=== PATIENT | male | born 1935 | race Caucasian/White ===

== ENCOUNTER 2021-11-28 11:41 | Inpatient (IN) ==
[2021-11-28 13:14] LABS: Basophils # 0.1 K/mcL (0.0-0.2); Basophils % 0.5 %; Eosinophils # 0.2 K/mcL (0.0-0.6); Eosinophils % 1.6 %; Hematocrit 38.7 % (37.5-50.1); Hemoglobin 12.2 g/dL (12.9-16.9); Immature Granulocytes % 0.2 % (0-4); Lymphocytes # 1.5 K/mcL (0.6-4.6); Lymphocytes % 15.5 %; Mean Corpuscular HGB Conc 31.5 g/dL (31.6-35.5); Mean Corpuscular Hemoglobin 29.7 pg (28.0-33.3); Mean Corpuscular Volume 94.2 fL (83.0-100.0); Mean Platelet Volume 9.6 fL (9.4-12.4); Monocytes # 0.8 K/mcL (0.0-1.3); Monocytes % 8.2 %; Neutrophils # 7.2 K/mcL (1.6-8.9); Platelet Count 221 K/mcL (140-400); Red Blood Count 4.11 M/mcL (4.19-5.50); Red Cell Distribution Width 20.1 % (11.5-14.5); White Blood Count 9.7 K/mcL (4.3-11.1)
[2021-11-28 13:28] LABS: INR 1.1; Prothrombin Time 11.8 Seconds (9.4-12.1)
[2021-11-28 13:31] LABS: BUN/Creatinine Ratio 10 (6-26); Blood Urea Nitrogen 11 mg/dL (8-23); Calcium 9.9 mg/dL (8.6-10.3); Carbon Dioxide 28 mEq/L (23-29); Chloride 103 mEq/L (98-107); Glucose 100 mg/dL (70-105); Osmolality,Calculated 285 (280-300); Potassium 4.3 mEq/L (3.5-5.1); Sodium 138 mEq/L (136-145)
[2021-11-28 13:32] LABS: Troponin I < 0.03 ng/mL (< 0.04)
[2021-11-28] MEDS ORDERED: Iopamidol - 370 200 ML INFUS..BTL ONE (15:15)
[2021-11-28] MEDS ORDERED: *HR* Heparin 10,000 UNIT/10 ML VIAL ONE (15:15)
[2021-11-28] MEDS ORDERED: Heparin 1,000 UNITS/500 mL 500 ML ONE (15:15)
[2021-11-28] MEDS ORDERED: 0.9 % Sodium Chloride 2,000 ML ONE (15:16)
[2021-11-28] MEDS ORDERED: Nitroglycerin 1,000 MCG/5 ML VIAL IV ONE (15:16)
[2021-11-28] MEDS ORDERED: *HR* FentaNYL (PF) 100 MCG/2 ML VIAL ONE (15:24)
[2021-11-28] MEDS ORDERED: *HR* Midazolam HCl 2 MG/2 ML VIAL ONE (15:24)
[2021-11-28] MEDS ORDERED: Ondansetron 4 MG/2 ML VIAL IVP PRN (15:43)
[2021-11-28] MEDS ORDERED: Naloxone 0.4 MG/ML INJ IVP PRN (15:43)
[2021-11-28] MEDS ORDERED: Acetaminophen 325 MG TABLET PO PRN (15:43)
[2021-11-28] MEDS ORDERED: CeFAZolin Syr 2,000MG/20 ML 2,000 MG/20 ML SYRINGE IVPB ONE (18:09)
[2021-11-28 19:03] LABS: Chol/HDL Ratio 2.6 (0-4.9); Cholesterol 129 mg/dL (< 200); HDL Cholesterol 50 mg/dL (40-59); LDL Cholesterol,Calculated 51 mg/dL (< 100); Triglycerides 140 mg/dL (< 150)
[2021-11-28 19:36] LABS: Estimated Average Glucose 103 mg/dl; Hemoglobin A1C 5.2 %
[2021-11-28] MEDS: Gabapentin 300 MG CAPSULE PO SCH (22:33)
[2021-11-28 23:10] LABS: Bilirubin,Urine Negative (Negative); Blood,Urine Negative (Negative); Calcium Oxalate Crystals,Urine Present per hpf; Clarity,Urine Clear (Clear); Color,Urine Light-Yellow (Yellow); Glucose,Urine (UA) Normal (Normal); Ketones,Urine Negative (Negative); Leukocyte Esterase,Urine Large (Negative); Mucus,Urine Few per lpf (None-Few); Nitrite,Urine Negative (Negative); PH,Urine 6.5 pH Units (5.0-8.0); Protein,Urine Trace mg/dL (Neg-Trace); RBC,Urine 15-30 per hpf (0-3); Specific Gravity,Urine > 1.030 (1.010-1.025); Squamous Epithelial Cell,Urine Few per hpf (None-Few); Urobilinogen,Urine Normal (Normal); WBC,Urine TNTC per hpf (0-3)
[2021-11-29 03:14] LABS: Hematocrit 35.4 % (37.5-50.1); Hemoglobin 11.4 g/dL (12.9-16.9); Mean Corpuscular HGB Conc 32.2 g/dL (31.6-35.5); Mean Corpuscular Hemoglobin 29.7 pg (28.0-33.3); Mean Corpuscular Volume 92.2 fL (83.0-100.0); Mean Platelet Volume 9.3 fL (9.4-12.4); Platelet Count 203 K/mcL (140-400); Red Blood Count 3.84 M/mcL (4.19-5.50)
[2021-11-29 03:34] LABS: Calcium 9.5 mg/dL (8.6-10.3); Potassium 3.9 mEq/L (3.5-5.1)
[2021-11-29] MEDS: *HR* Enoxaparin 40 MG/0.4 ML SYRINGE SQ SCH (05:52)
[2021-11-29] MEDS ORDERED: lisinopriL 20 MG TABLET PO SCH (09:00)
[2021-11-29] MEDS ORDERED: Iopamidol - 370 500 ML MLS IVP ONE (10:23)
[2021-11-29 15:44] LABS: ABG Base Excess -2 mEq/L (-2 to 3); ABG HCO3 23 mEq/L (21-27); ABG Oxygen Saturation 97 % (95-98); ABG PCO2 36 mmHg (35-45); ABG PH 7.41 pH Units (7.32-7.45); ABG PO2 86 mmHg (85-104); ABG TCO2 24 mEq/L (20-26)
[2021-11-29] MEDS: Gabapentin 300 MG CAPSULE PO SCH (19:55)
[2021-11-29] MEDS: Chlorhexidine Rinse 15 ML MOUTHWASH MM SCH (19:55)
[2021-11-30] MEDS: *HR* Enoxaparin 40 MG/0.4 ML SYRINGE SQ SCH (02:28)
[2021-11-30 03:08] LABS: Basophils % 0.4 %; Eosinophils # 0.1 K/mcL (0.0-0.6); Eosinophils % 1.8 %; Hematocrit 35.5 % (37.5-50.1); Hemoglobin 11.2 g/dL (12.9-16.9); Immature Granulocytes % 0.1 % (0-4); Lymphocytes % 30.1 %; Mean Corpuscular HGB Conc 31.5 g/dL (31.6-35.5); Mean Corpuscular Hemoglobin 29.2 pg (28.0-33.3); Mean Corpuscular Volume 92.7 fL (83.0-100.0); Mean Platelet Volume 9.6 fL (9.4-12.4); Monocytes # 0.7 K/mcL (0.0-1.3); Monocytes % 10.1 %; Neutrophils # 3.9 K/mcL (1.6-8.9); Platelet Count 197 K/mcL (140-400); Red Blood Count 3.83 M/mcL (4.19-5.50); Segmented Neutrophils % 57.5 %; White Blood Count 6.7 K/mcL (4.3-11.1)
[2021-11-30 03:24] LABS: Calcium 9.5 mg/dL (8.6-10.3); Potassium 3.7 mEq/L (3.5-5.1)
[2021-11-30] MEDS ORDERED: CeFAZolin Syr 2,000MG/20 ML 2,000 MG/20 ML SYRINGE IVPB ONE (04:00)
[2021-11-30] MEDS ORDERED: Aspirin 81 MG TAB.CHEW PO ONE (06:00)
[2021-11-30] MEDS: Chlorhexidine Rinse 15 ML MOUTHWASH MM SCH ×3 (06:01→20:42)
[2021-11-30] MEDS ORDERED: NiCARdipine 2.5 MG/10 ML Syringe IVPB ONE (06:06)
[2021-11-30] MEDS ORDERED: *HR* Midazolam HCl 5 MG/5 ML VIAL IVP ONE (06:14)
[2021-11-30] MEDS ORDERED: EPHEDrine 50 MG/ML VIAL ONE (06:15)
[2021-11-30] MEDS ORDERED: *HR* FentaNYL (PF) 250 MCG/5 ML VIAL ONE (06:15)
[2021-11-30] MEDS ORDERED: *HR* Phenylephrine 10 MG/ML VIAL ONE (06:16)
[2021-11-30] MEDS ORDERED: niCARdipine 20 MG/200 ML MLS IVC ONE (06:16)
[2021-11-30] MEDS ORDERED: *HR* Norepinephrine 4 MG/4 ML VIAL IVC ONE (06:16)
[2021-11-30] MEDS ORDERED: Tranexamic Acid 1,000 MG/10 ML VIAL ONE (06:18)
[2021-11-30] MEDS ORDERED: Calcium Gluconate 1,000 MG/10 ML VIAL ONE (06:18)
[2021-11-30] MEDS ORDERED: *HR* Etomidate 20 MG/10 ML AMPUL IVP ONE (06:18)
[2021-11-30] MEDS ORDERED: Protamine Sulfate 250 MG/25 ML VIAL IVP ONE (06:22)
[2021-11-30] MEDS ORDERED: Papaverine 60 MG/2 ML VIAL IVP ONE (06:37)
[2021-11-30] MEDS ORDERED: del Nido Cardioplegia Solution PF ONE ×2 (07:00)
[2021-11-30] MEDS ORDERED: Buckersberg's Blood Cardioplegia PF ONE (07:00)
[2021-11-30] MEDS ORDERED: Heparin 15,000 UNIT in 0.9 % Sodium Chloride 500 ML IR ONE ×2 (07:00→11:46)
[2021-11-30] MEDS ORDERED: Norepinephrine 4 MG in 0.9 % Sodium Chloride 250 ML IVC PRN ×2 (07:00→11:46)
[2021-11-30 08:03] LABS: ABG Base Excess -1 mEq/L (-2 to 3); ABG Chloride 99 mEq/L (98-107); ABG Glucose 92 mg/dL (60-95); ABG HCO3 25 mEq/L (21-27); ABG Ionized Calcium 1.24 mmol/L (1.15-1.35); ABG Oxygen Saturation 100 % (95-98); ABG PCO2 49 mmHg (35-45); ABG PH 7.32 pH Units (7.32-7.45); ABG PO2 423 mmHg (85-104); ABG TCO2 27 mEq/L (20-26)
[2021-11-30 09:19] LABS: ABG Base Excess -5 mEq/L (-2 to 3); ABG Chloride 101 mEq/L (98-107); ABG Glucose 154 mg/dL (60-95); ABG HCO3 23 mEq/L (21-27); ABG Ionized Calcium 1.18 mmol/L (1.15-1.35); ABG Oxygen Saturation 94 % (95-98); ABG PCO2 49 mmHg (35-45); ABG PH 7.27 pH Units (7.32-7.45); ABG PO2 82 mmHg (85-104); ABG TCO2 24 mEq/L (20-26)
[2021-11-30] MEDS ORDERED: Insulin Regular, Human 100 UNIT/ML IV PRN ×3 (11:18→11:46)
[2021-11-30] MEDS ORDERED: *HR* FentaNYL (PF) 100 MCG/2 ML VIAL IVP PRN ×2 (11:18→11:46)
[2021-11-30] MEDS ORDERED: *HR* Dextrose 50 % in Water (Syg) 50 ML SYRINGE IVP PRN ×2 (11:18→11:46)
[2021-11-30] MEDS ORDERED: *HR* OxyCODONE/APAP 5/325 TABLET PO PRN ×2 (11:18→11:46)
[2021-11-30] MEDS ORDERED: Calcium Gluconate 1gm/50mL 1 GM/50 ML BAG IVPB PRN ×2 (11:18→11:46)
[2021-11-30] MEDS ORDERED: Albumin Human 5% 12.5 GM/250 ML IV.SOLN IVPB PRN ×2 (11:18→11:46)
[2021-11-30] MEDS ORDERED: Potassium Chloride 40 MEQ/200 ML BAG IVPB PRN ×3 (11:18→11:46)
[2021-11-30 11:22] LABS: ABG Base Excess -3 mEq/L (-2 to 3); ABG Chloride 101 mEq/L (98-107); ABG Glucose 130 mg/dL (60-95); ABG HCO3 23 mEq/L (21-27); ABG Ionized Calcium 1.49 mmol/L (1.15-1.35); ABG Oxygen Saturation 98 % (95-98); ABG PCO2 44 mmHg (35-45); ABG PH 7.33 pH Units (7.32-7.45); ABG PO2 115 mmHg (85-104); ABG TCO2 25 mEq/L (20-26)
[2021-11-30] MEDS ORDERED: Norepinephrine 4 MG/254 ML IV.SOLN IVC SCH (11:30)
[2021-11-30] MEDS ORDERED: niCARdipine 20 MG/200 ML MLS IVC SCH ×3 (11:30→11:46)
[2021-11-30] MEDS ORDERED: Ipratropium 1 PUFF INHALER IH ONE (11:37)
[2021-11-30] MEDS ORDERED: Mannitol 25% vial 3.25 GM, Magnesium Sulfate 2 GM, Sodium Bicarbonate 13 MEQ, Potassium... PF ONE ×2 (11:46)
[2021-11-30] MEDS ORDERED: Albuterol 2.5 MG/3 ML NEBULIZER IH PRN (11:46)
[2021-11-30] MEDS ORDERED: Sodium Bicarbonate 10 MEQ, Potassium Chloride 80 MEQ in CARDIOPLEGIC SOLUTION NO.1 1,00... PF ONE (11:46)
[2021-11-30] MEDS ORDERED: Ipratropium/Albuterol Neb 3 ML IH PRN (11:46)
[2021-11-30] MEDS ORDERED: Naloxone 0.4 MG/ML INJ IVP PRN (11:46)
[2021-11-30] MEDS ORDERED: Ondansetron 4 MG/2 ML VIAL IVP PRN (11:46)
[2021-11-30] MEDS ORDERED: Acetaminophen 325 MG TABLET PO PRN (11:46)
[2021-11-30] MEDS ORDERED: Artificial Tears SOLN 15 ML BOTTLE BOTH EYES PRN (11:49)
[2021-11-30 11:52] LABS: ABG Base Excess -2 mEq/L (-2 to 3); ABG HCO3 24 mEq/L (21-27); ABG Oxygen Saturation 100 % (95-98); ABG PCO2 45 mmHg (35-45); ABG PH 7.33 pH Units (7.32-7.45); ABG PO2 254 mmHg (85-104); ABG TCO2 25 mEq/L (20-26); Blood Gas Modality ASSIST CONTROL; Blood Gas VT 500 cc
[2021-11-30 11:57] LABS: Basophils % 0.3 %; Eosinophils # 0.2 K/mcL (0.0-0.6); Eosinophils % 1.5 %; Hematocrit 34.1 % (37.5-50.1); Hemoglobin 11.1 g/dL (12.9-16.9); Immature Granulocytes % 0.5 % (0-4); Lymphocytes # 1.2 K/mcL (0.6-4.6); Lymphocytes % 10.7 %; Mean Corpuscular HGB Conc 32.6 g/dL (31.6-35.5); Mean Corpuscular Hemoglobin 30.1 pg (28.0-33.3); Mean Corpuscular Volume 92.4 fL (83.0-100.0); Mean Platelet Volume 8.8 fL (9.4-12.4); Monocytes # 0.7 K/mcL (0.0-1.3); Monocytes % 6.6 %; Neutrophils # 8.7 K/mcL (1.6-8.9); Platelet Count 163 K/mcL (140-400); Red Blood Count 3.69 M/mcL (4.19-5.50); Red Cell Distribution Width 19.6 % (11.5-14.5); Segmented Neutrophils % 80.4 %
[2021-11-30] MEDS ORDERED: Ipratropium 1 PUFF INHALER IH SCH (12:00)
[2021-11-30 12:01] LABS: White Blood Count 10.8 K/mcL (4.3-11.1)
[2021-11-30 12:05] LABS: INR 1.3
[2021-11-30 12:07] LABS: Activated Partial Thrombo Time 30.8 Seconds (26.0-36.0)
[2021-11-30] MEDS: Albumin Human 5% 12.5 GM/250 ML IV.SOLN IVPB PRN ×4 (12:15→14:43)
[2021-11-30 12:18] LABS: Magnesium 1.8 mg/dL (1.6-2.6); Potassium 4.2 mEq/L (3.5-5.1)
[2021-11-30] MEDS: Ipratropium 1 PUFF INHALER IH SCH ×4 (13:20→23:13)
[2021-11-30] MEDS ORDERED: Amiodarone Premix 150 MG/100 ML BAG IVPB ONE ×2 (13:38→14:00)
[2021-11-30] MEDS ORDERED: Amiodarone Premix 360 MG/200 ML BAG IVC ONE ×2 (13:39→13:45)
[2021-11-30] MEDS ORDERED: MethylPREDNISolone 40 MG/ML VIAL IVP ONE (13:45)
[2021-11-30] MEDS: *HR* FentaNYL (PF) 100 MCG/2 ML VIAL IVP PRN ×4 (14:02→22:13)
[2021-11-30] MEDS: Albumin Human 5% 12.5 GM/250 ML IV.SOLN IVPB ONE ×2 (15:23→15:46)
[2021-11-30 15:27] LABS: ABG Base Excess -4 mEq/L (-2 to 3); ABG HCO3 22 mEq/L (21-27); ABG Oxygen Saturation 95 % (95-98); ABG PCO2 40 mmHg (35-45); ABG PH 7.34 pH Units (7.32-7.45); ABG PO2 78 mmHg (85-104); ABG TCO2 23 mEq/L (20-26); Blood Gas Modality ASSIST CONTROL; Blood Gas VT 500 cc
[2021-11-30] MEDS ORDERED: Ipratropium/Albuterol Neb 3 ML IH SCH (16:00)
[2021-11-30] MEDS ORDERED: CeFAZolin 2 GM/120 ML BAG IVPB SCH ×2 (16:00)
[2021-11-30] MEDS: CeFAZolin 2 GM/120 ML BAG IVPB SCH ×2 (16:47→22:13)
[2021-11-30] MEDS: Artificial Tears SOLN 15 ML BOTTLE BOTH EYES SCH ×3 (16:59→19:10)
[2021-11-30] MEDS: Famotidine 20 MG/2 ML VIAL IVP SCH (17:06)
[2021-11-30] MEDS: Aspirin Enteric Coated 81 MG Tablet PO SCH (18:03)
[2021-11-30] MEDS: *HR* OxyCODONE/APAP 5/325 TABLET PO PRN (19:38)
[2021-11-30] MEDS: Budesonide/Formoterol 160/4.5 1 PUFF INH IH SCH (19:39)
[2021-11-30] MEDS: Amiodarone Premix 360 MG/200 ML BAG IVC SCH (19:43)
[2021-11-30] MEDS: Sennosides 8.6 MG TABLET PO SCH (20:42)
[2021-11-30] MEDS: Gabapentin 300 MG CAPSULE PO SCH (20:42)
[2021-11-30] MEDS ORDERED: Chlorhexidine Rinse 15 ML MOUTHWASH MM SCH ×2 (21:00)
[2021-12-01] MEDS: Norepinephrine 4 MG/254 ML IV.SOLN IVC SCH ×2 (00:57→20:03)
[2021-12-01] MEDS: *HR* FentaNYL (PF) 100 MCG/2 ML VIAL IVP PRN (03:06)
[2021-12-01 04:01] LABS: Basophils % 0.1 %; Immature Granulocytes % 0.4 % (0-4); Lymphocytes # 0.8 K/mcL (0.6-4.6); Lymphocytes % 5.2 %; Mean Corpuscular HGB Conc 32.5 g/dL (31.6-35.5); Mean Corpuscular Hemoglobin 29.9 pg (28.0-33.3); Mean Corpuscular Volume 92.1 fL (83.0-100.0); Mean Platelet Volume 9.2 fL (9.4-12.4); Monocytes # 1.3 K/mcL (0.0-1.3); Neutrophils # 12.2 K/mcL (1.6-8.9); Platelet Count 157 K/mcL (140-400); Red Blood Count 3.04 M/mcL (4.19-5.50); Red Cell Distribution Width 19.6 % (11.5-14.5); Segmented Neutrophils % 85.3 %; White Blood Count 14.3 K/mcL (4.3-11.1)
[2021-12-01 04:02] LABS: Basophils % 0.1 %; Hematocrit 29.2 % (37.5-50.1); Hemoglobin 9.3 g/dL (12.9-16.9); Immature Granulocytes % 0.3 % (0-4); Lymphocytes # 0.8 K/mcL (0.6-4.6); Lymphocytes % 5.4 %; Mean Corpuscular HGB Conc 31.8 g/dL (31.6-35.5); Mean Corpuscular Hemoglobin 29.6 pg (28.0-33.3); Mean Platelet Volume 9.6 fL (9.4-12.4); Monocytes # 1.5 K/mcL (0.0-1.3); Monocytes % 9.9 %; Neutrophils # 12.4 K/mcL (1.6-8.9); Platelet Count 169 K/mcL (140-400); Red Blood Count 3.14 M/mcL (4.19-5.50); Red Cell Distribution Width 19.7 % (11.5-14.5); Segmented Neutrophils % 84.3 %; White Blood Count 14.7 K/mcL (4.3-11.1)
[2021-12-01 04:03] LABS: Calcium 9.3 mg/dL (8.6-10.3); Magnesium 1.6 mg/dL (1.6-2.6); Potassium 4.4 mEq/L (3.5-5.1)
[2021-12-01 04:08] LABS: Hemoglobin 9.1 g/dL (12.9-16.9)
[2021-12-01 04:13] LABS: INR 1.2
[2021-12-01 04:15] LABS: INR 1.1; Prothrombin Time 12.6 Seconds (9.4-12.1)
[2021-12-01 04:16] LABS: Activated Partial Thrombo Time 28.2 Seconds (26.0-36.0)
[2021-12-01] MEDS: Ipratropium 1 PUFF INHALER IH SCH ×6 (04:22→23:25)
[2021-12-01 04:33] LABS: Calcium 9.3 mg/dL (8.6-10.3); Magnesium 1.6 mg/dL (1.6-2.6)
[2021-12-01] MEDS: *HR* Enoxaparin 40 MG/0.4 ML SYRINGE SQ SCH (05:57)
[2021-12-01] MEDS: Famotidine 20 MG/2 ML VIAL IVP SCH ×2 (05:57→17:58)
[2021-12-01] MEDS: Artificial Tears SOLN 15 ML BOTTLE BOTH EYES SCH ×6 (07:18→23:25)
[2021-12-01] MEDS: *HR* OxyCODONE/APAP 5/325 TABLET PO PRN ×3 (07:19→17:52)
[2021-12-01] MEDS: Amiodarone Premix 360 MG/200 ML BAG IVC SCH ×2 (07:20→19:35)
[2021-12-01] MEDS: Budesonide/Formoterol 160/4.5 1 PUFF INH IH SCH ×2 (07:47→22:03)
[2021-12-01] MEDS: Chlorhexidine Rinse 15 ML MOUTHWASH MM SCH ×2 (07:54→20:02)
[2021-12-01] MEDS: lisinopriL 10 MG TABLET PO SCH (07:55)
[2021-12-01] MEDS: Aspirin Enteric Coated 81 MG Tablet PO SCH (07:55)
[2021-12-01] MEDS ORDERED: Aspirin Enteric Coated 81 MG Tablet PO SCH ×2 (09:00)
[2021-12-01] MEDS ORDERED: lisinopriL 10 MG TABLET PO SCH (09:00)
[2021-12-01] MEDS ORDERED: D5% in Water 1,000 ML IVC PRN (11:30)
[2021-12-01] MEDS ORDERED: Dextrose Gel 15 GM/37.5 ML TUBE PO PRN ×2 (11:30)
[2021-12-01] MEDS ORDERED: Mag Hydrox/Al Hydrox/Simeth 30 ML UDC PO PRN (11:44)
[2021-12-01] MEDS: Insulin LISPRO 300 UNITS/3 ML VIAL SUBQ SCH ×3 (11:59→22:12)
[2021-12-01] MEDS: Gabapentin 300 MG CAPSULE PO SCH (20:02)
[2021-12-01] MEDS: Sennosides 8.6 MG TABLET PO SCH (20:03)
[2021-12-02] MEDS: *HR* OxyCODONE/APAP 5/325 TABLET PO PRN ×3 (02:15→22:10)
[2021-12-02] MEDS: Artificial Tears SOLN 15 ML BOTTLE BOTH EYES SCH ×5 (03:19→20:37)
[2021-12-02 03:56] LABS: Basophils % 0.2 %; Eosinophils % 0.2 %; Hematocrit 26.3 % (37.5-50.1); Hemoglobin 8.4 g/dL (12.9-16.9); Immature Granulocytes % 0.4 % (0-4); Immature Platelets 4.7 % (1.1-6.1); Lymphocytes # 0.9 K/mcL (0.6-4.6); Lymphocytes % 7.8 %; Mean Corpuscular HGB Conc 31.9 g/dL (31.6-35.5); Mean Corpuscular Hemoglobin 29.9 pg (28.0-33.3); Mean Corpuscular Volume 93.6 fL (83.0-100.0); Monocytes # 1.1 K/mcL (0.0-1.3); Monocytes % 9.5 %; Neutrophils # 9.9 K/mcL (1.6-8.9); Platelet Count 145 K/mcL (140-400); Red Blood Count 2.81 M/mcL (4.19-5.50); Red Cell Distribution Width 20.2 % (11.5-14.5); Segmented Neutrophils % 81.9 %
[2021-12-02 04:12] LABS: Potassium 3.9 mEq/L (3.5-5.1)
[2021-12-02] MEDS: Ipratropium 1 PUFF INHALER IH SCH ×6 (04:14→23:33)
[2021-12-02] MEDS: *HR* Enoxaparin 40 MG/0.4 ML SYRINGE SQ SCH (05:23)
[2021-12-02] MEDS: Famotidine 20 MG/2 ML VIAL IVP SCH (05:24)
[2021-12-02] MEDS: Chlorhexidine Rinse 15 ML MOUTHWASH MM SCH ×2 (08:33→20:37)
[2021-12-02] MEDS: lisinopriL 10 MG TABLET PO SCH (08:34)
[2021-12-02] MEDS: Aspirin Enteric Coated 81 MG Tablet PO SCH (08:34)
[2021-12-02] MEDS: Amiodarone Premix 360 MG/200 ML BAG IVC SCH (08:36)
[2021-12-02] MEDS: Insulin LISPRO 300 UNITS/3 ML VIAL SUBQ SCH ×4 (08:37→20:37)
[2021-12-02] MEDS: Budesonide/Formoterol 160/4.5 1 PUFF INH IH SCH ×2 (08:38→20:32)
[2021-12-02] MEDS: Doxycycline 100 MG CAPSULE PO SCH ×2 (14:55→22:09)
[2021-12-02] MEDS ORDERED: *HR* Amiodarone 200 MG TABLET PO ONE (20:00)
[2021-12-02] MEDS: Gabapentin 300 MG CAPSULE PO SCH (20:36)
[2021-12-02] MEDS: Sennosides 8.6 MG TABLET PO SCH (20:36)
[2021-12-02] MEDS: Norepinephrine 4 MG/254 ML IV.SOLN IVC SCH (20:49)
[2021-12-02] MEDS ORDERED: Famotidine 20 MG TABLET PO SCH (21:00)
[2021-12-03] MEDS: Artificial Tears SOLN 15 ML BOTTLE BOTH EYES SCH ×2 (00:11→05:15)
[2021-12-03 00:20] VITALS: TEMP 98.5
[2021-12-03] MEDS: Ipratropium 1 PUFF INHALER IH SCH ×4 (03:40→15:24)
[2021-12-03] MEDS: *HR* Enoxaparin 40 MG/0.4 ML SYRINGE SQ SCH (05:14)
[2021-12-03 05:50] LABS: Hematocrit 25.4 % (37.5-50.1); Hemoglobin 8.2 g/dL (12.9-16.9); Mean Corpuscular HGB Conc 32.3 g/dL (31.6-35.5); Mean Corpuscular Hemoglobin 30.1 pg (28.0-33.3); Mean Corpuscular Volume 93.4 fL (83.0-100.0); Mean Platelet Volume 9.8 fL (9.4-12.4); Platelet Count 165 K/mcL (140-400); Red Blood Count 2.72 M/mcL (4.19-5.50); Red Cell Distribution Width 20.3 % (11.5-14.5); White Blood Count 8.2 K/mcL (4.3-11.1)
[2021-12-03 06:12] LABS: Magnesium 2.1 mg/dL (1.6-2.6); Potassium 4.1 mEq/L (3.5-5.1)
[2021-12-03 06:13] LABS: Albumin 3.7 g/dL (3.5-5.7); Albumin/Globulin Ratio 1.7 (1.1-2.2); Bilirubin,Direct 0.2 mg/dL (0.0-0.2); Bilirubin,Indirect 0.4 mg/dL (0.0-1.0); Bilirubin,Total 0.6 mg/dL (0.3-1.0); Globulin 2.2 g/dL (2.4-3.5); Total Protein 5.9 g/dL (6.4-8.9)
[2021-12-03] MEDS ORDERED: *HR* Amiodarone 200 MG TABLET PO ONE (08:00)
[2021-12-03] MEDS ORDERED: Albuterol 2.5 MG/3 ML NEBULIZER IH PRN (08:21)
[2021-12-03] MEDS ORDERED: Acetaminophen 325 MG TABLET PO PRN (08:21)
[2021-12-03] MEDS ORDERED: *HR* Dextrose 50 % in Water (Syg) 50 ML SYRINGE IVP PRN (08:21)
[2021-12-03] MEDS ORDERED: Naloxone 0.4 MG/ML INJ IVP PRN (08:21)
[2021-12-03] MEDS ORDERED: Ondansetron 4 MG/2 ML VIAL IVP PRN (08:21)
[2021-12-03] MEDS ORDERED: Dextrose Gel 15 GM/37.5 ML TUBE PO PRN ×2 (08:21)
[2021-12-03] MEDS ORDERED: Mag Hydrox/Al Hydrox/Simeth 30 ML UDC PO PRN (08:21)
[2021-12-03] MEDS: Insulin LISPRO 300 UNITS/3 ML VIAL SUBQ SCH (08:21)
[2021-12-03] MEDS ORDERED: D5% in Water 1,000 ML IVC PRN (08:21)
[2021-12-03] MEDS ORDERED: Norepinephrine 4 MG/254 ML IV.SOLN IVC SCH (08:21)
[2021-12-03] MEDS ORDERED: *HR* OxyCODONE/APAP 5/325 TABLET PO PRN (08:21)
[2021-12-03] MEDS ORDERED: Ipratropium/Albuterol Neb 3 ML IH PRN (08:21)
[2021-12-03] MEDS ORDERED: Aspirin Enteric Coated 81 MG Tablet PO SCH (09:00)
[2021-12-03] MEDS ORDERED: lisinopriL 10 MG TABLET PO SCH (09:00)
[2021-12-03] MEDS ORDERED: Budesonide/Formoterol 160/4.5 1 PUFF INH IH SCH (10:00)
[2021-12-03] MEDS ORDERED: Doxycycline 100 MG CAPSULE PO SCH (11:00)
[2021-12-03] MEDS ORDERED: Insulin LISPRO 300 UNITS/3 ML VIAL SUBQ SCH ×2 (11:30→21:00)
[2021-12-03 14:44] VITALS: BP 111/76
[2021-12-03 15:05] VITALS: PULSE 85
[2021-12-03 15:26] VITALS: O2SAT 98
[2021-12-03] MEDS ORDERED: *HR* Amiodarone 200 MG TABLET PO SCH ×2 (21:00)
[2021-12-03] MEDS ORDERED: Famotidine 20 MG TABLET PO SCH (21:00)
[2021-12-03] MEDS ORDERED: Sennosides 8.6 MG TABLET PO SCH (21:00)
[2021-12-03] MEDS ORDERED: Gabapentin 300 MG CAPSULE PO SCH (21:00)
[2021-12-04] MEDS ORDERED: *HR* Enoxaparin 40 MG/0.4 ML SYRINGE SQ SCH (06:00)
== END 2021-12-03 19:10 | disposition home health service (06) | DRG 233 ==
LOC: 3BNU 11:41 → EMEROOARM 11:41 → SUATTDRO 15:29 → 3BNU 15:42 → ICNU 11-29 19:28 → 2NNU 12-03 14:40
PROVIDERS: ADMIT Internal Medicine; ATTEND Family Medicine